=== PATIENT | female | born 1980 | race African-American/Black ===

== ENCOUNTER 2019-02-11 13:04 | Emergency (ER) | payer SELFPAY ==
[2019-02-11] MEDS: NAPROXEN 500 MG TAB PO (14:44)
[2019-02-11] MEDS: CYCLOBENZAPRINE 10 MG TAB PO (14:44)
== END 2019-02-11 15:08 | disposition home or self-care (01) ==
LOC: FTE 15:08
DX: M62.830 Muscle spasm of back (principal)
CPT/HCPCS: 99283